=== PATIENT | female | born 1950 | race Hispanic/Latino ===

== ENCOUNTER 2017-04-19 07:39 | Emergency (ER) | payer OTHER, SELFPAY ==
[2017-04-19] MEDS ORDERED: ONDANSETRON ODT 4 MG TAB ONE (08:11)
[2017-04-19] MEDS ORDERED: HYDROCODONE/ACETAMINOPHEN 5/325 MG TAB ONE (08:11)
[2017-04-19 08:16] LABS: APPEARANCE,URINE Cloudy (CLEAR); BILIRUBIN,URINE Negative (NEGATIVE); COLOR,URINE Yellow (YELLOW); GLUCOSE, URINE (UA) Negative (NEGATIVE); KETONES,URINE Negative (NEGATIVE); LEUKOCYTE ESTERASE ,URINE Large (NEGATIVE); NITRATE,URINE Positive (NEGATIVE); OCCULT BLOOD,URINE Small (NEGATIVE); PROTEIN,URINE Trace (NEGATIVE); UROBILINOGEN,URINE 0.2 mg/dL (0.2-1.0)
[2017-04-19] MEDS ORDERED: LIDOCAINE HCL-MPF 1% 2ML VIAL ONE (08:34)
[2017-04-19] MEDS ORDERED: CEFTRIAXONE SODIUM 1 GM ONE (08:35)
[2017-04-19 08:44] LABS: BACTERIA,URINE Few /HPF (None Seen); SQUAMOUS EPITHELIAL CELL,UR Few /LPF (0-2); WBC,URINE 26-50 /HPF (0-1)
== END 2017-04-19 09:23 | disposition home or self-care (01) ==
LOC: EDH 07:39
DX: N39.0 Urinary tract infection, site not specified (principal); Z88.8 Allergy status to other drugs, medicaments and biological substances
CPT/HCPCS: 81001; 82948; 87088; 87186; 96372; 99284; J0696; J3490

== ENCOUNTER → 2019-08-26 | Outpatient (CLI) | payer OTHER | END | disposition home or self-care (01) | LOC: RAH 15:03 | PROVIDERS: ATTEND Family Medicine | DX: I10 Essential (primary) hypertension (principal); I20.8 Other forms of angina pectoris; M47.819 Spondylosis without myelopathy or radiculopathy, site unspecified | CPT/HCPCS: 71046 ==